=== PATIENT | female | born 1955 | race Hispanic/Latino ===

== ENCOUNTER 2019-06-20 22:38 | Emergency (ER) | payer MEDICARE ==
[2019-06-20 23:17] LABS: Bilirubin Negative (Negative); Blood, Urine Negative (Negative); Glucose, Urine (Dipstick) 500 mg/dL (Negative); Leukocyte Negative (Negative); Nitrite Negative (Negative); Protein, Urine (Dipstick) Trace mg/dL (Neg-Trace); Urobilinogen 0.2 mg/dL (Less than 2)
[2019-06-20 23:18] LABS: Clarity Clear (Clear)
[2019-06-20 23:35] LABS: #Eosinphils 0.1 thou/uL (0.0-0.7); #Lymphocytes 1.1 thou/uL (1.20-3.40); #Monocytes 0.4 thou/uL (0.11-0.59); #Neutrophils 5.1 thou/uL (1.40-6.50); %Basophils 0.7 % (0.0-1.0); %Eosinophils 0.9 % (0.0-10.0); %Lymphocytes 15.8 % (21.0-51.0); %Monocytes 6.4 % (0.0-10.0); %Neutrophils 76.3 % (42.0-75.0); Hemoglobin 12.5 g/dL (12.0-16.0); Mean Corpuscular HGB CONC 32.1 g/dL (32.0-36.0); Mean Corpuscular Hemoglobin 29.9 pg (27.0-31.0); Mean Corpuscular Volume 93.1 fL (78.0-98.0); Mean Platelet Volume 8.5 fL (7.4-10.4); Platelet Count 225 thou/uL (130-400); RBC Distribution Width 13.2 % (11.5-14.5); Red Blood Cell (RBC) Count 4.17 mill/uL (4.20-5.40); White Blood Cell (WBC) Count 6.7 thou/uL (4.8-10.8)
[2019-06-20 23:56] LABS: ALT (SGPT) 15 U/L (8-55); AST (SGOT) 13 U/L (5-34); Albumin 3.6 g/dL (3.4-4.8); Alkaline Phosphatase 123 U/L (40-110); Anion Gap 15 mmol/L (10-20); BUN (Urea Nitrogen) 10 mg/dL (9.8-20.1); Bilirubin, Total 0.3 mg/dL (0.2-1.2); Calc. Creatinine Clearance 0 mL/min (70-130); Calcium 8.3 mg/dL (7.8-10.44); Carbon Dioxide 17 mmol/L (23-31); Chloride 101 mmol/L (98-107); Estimated GFR-MDRD 69; Globulin 2.7 g/dL (2.4-3.5); Glucose 390 mg/dL (80-115); Lipase 6 U/L (8-78); Protein, Total 6.3 g/dL (6.0-8.3); Sodium 129 mmol/L (136-145)
[2019-06-21] MEDS ORDERED: Ketorolac Tromethamine 30 MG/ML VIAL ONE (00:08)
--- NOTE | 2019-06-21 07:20 | RAD ---
CHEST 1 VIEW: Date: 06/20/2019 HISTORY: Left lower quadrant pain. COMPARISON: None. FINDINGS: There are coronary artery stents. Single lead defibrillator tip projects over the right ventricle. Po rt-A-Cath tip at the mid SVC. Evidence of prior right mastectomy. Right upper quadrant surgical clips. IMPRESSION: No acute intrathoracic abnormality. POS: HOME
--- NOTE | 2019-06-21 08:08 | CT ---
PRELIMINARY REPORT/[facility]/EMERGENCY AFTER HOURS PROCEDURE EXAM: CT Abdomen and Pelvis Without Intravenous Contrast CLINICAL HISTORY: PT REPORTS LLQ PAIN AND VOMITING STARTED YESTERDAY, ALSO HAVING PAIN AT MASTECTOMY SITE (SURGERY WAS 6 WEEKS AGO.) PT ALSO REPORTS SOB. MASTECTOMY WOUND IS OPEN. TECHNIQUE: Axial computed tomography images of the abdomen and pelvis without intravenous contrast. CONTRAST: None. COMPARISON: None provided. FINDINGS: LUNG BASES: No basilar airspace consolidation or pleural effusion. LIVER: Unremarkable. GALLBLADDER AND BILE DUCTS: The gallbladder is surgically absent. PANCREAS: Unremarkable. SPLEEN: Unremarkable. ADRENAL GLANDS: Unremarkable. KIDNEYS, URETERS, AND BLADDER: Bilateral nonobstructing renal calculi. No ureteral or bladder calculi and no hydronephrosis. STOMACH AND BOWEL: Moderate volume of formed stool in the colon raising the possibility of some degree of constipation. APPENDIX: No CT evidence for appendicitis. PERITONEUM: No free fluid. No free air. REPRODUCTIVE: Unremarkable as visualized. VASCULATURE: Atherosclerosis. ABDOMINAL WALL AND SOFT TISSUES: Small focus of fat stranding with a few bubbles of gas in the subcutaneous fat of the anterior abdomi nal wall to the left inferolateral aspect of the umbilicus. Findings are most consistent with sequela of injection. Correlate clinically. BONES: No fracture or suspicious osseous abnormality. IMPRESSION: 1. Bilateral nonobstructing renal calculi. 2. Moderate volume of formed stool in the colon raising the possibility of some degree of constipatio n. 3. Small focus of fat stranding with a few bubbles of gas in the subcutaneous fat of the anterior abd ominal wall to the left inferolateral aspect of the umbilicus. Findings are most consistent with sequela of injection. Correlate clinically. ELECTRONICALLY SIGNED BY: Orion Amaya MD June 21, 2019 12:30:13 AM CDT This report is intended for review by the ordering physician only, in accordance of law. If you recei ve this report in error, please call [facility] at [phone]. FINAL REPORT Final report by Dr. Loving Emergency after-hours study CT ABDOMEN NONCONTRAST CT PELVIS NONCONTRAST: (Urolithiasis protocol) DATE: 06/21/2019 HISTORY: 63-year-old female with left lower quadrant abdominal pain, nausea, and vomiting COMPARISON: None TECHNIQUE: IV injection of iodinated contrast media: None Oral contrast media: None FINDINGS: Other than for urolithiasis, the lack of IV and oral contrast limits the evaluation. Agreement with preliminary report by [facility]. IMPRESSION: 1. Minimal bilateral nephrolithiasis: Tiny 2 mm calculi in each kidney, one on each side. 2. No obstructive uropathy or any other acute findings. Transcribed Date/Time: 06/21/2019 8:32 AM
== END 2019-06-21 01:35 | disposition home or self-care (01) ==
LOC: ERS 22:38
DX: R10.32 Left lower quadrant pain (principal); T81.31XA Disruption of external operation (surgical) wound, not elsewhere classified, initial encounter; R11.2 Nausea with vomiting, unspecified; E11.9 Type 2 diabetes mellitus without complications
CPT/HCPCS: 36415; 71045; 74176; 80053; 81003; 83605; 83690; 85025; 87040; 87077; 87086; 87186; 93005; 96372; 96374; J0500; J1885

== ENCOUNTER 2019-06-26 20:49 | Emergency (ER) | payer MEDICARE ==
[~2019-06-26 20:49] MED LIST: Iopamidol 370 76% 50 ML VIAL FS ONE; Iopamidol-370 76% 500 ML 1 ML ONE
[2019-06-26 21:25] LABS: Bilirubin Negative (Negative); Blood, Urine Negative (Negative); Clarity Clear (Clear); Glucose, Urine (Dipstick) Greater than 1000 mg/dL (Negative); Leukocyte Negative Leu/uL (Negative); Nitrite Negative (Negative); Protein, Urine (Dipstick) Negative (Neg-Trace); Urobilinogen Normal mg/dL (Less than 2)
[2019-06-26 21:51] LABS: #Monocytes 0.3 thou/uL (0.11-0.59); #Neutrophils 5.1 thou/uL (1.40-6.50); %Basophils 0.6 % (0.0-1.0); %Eosinophils 0.3 % (0.0-10.0); %Lymphocytes 14.9 % (21.0-51.0); %Monocytes 5.1 % (0.0-10.0); %Neutrophils 79.1 % (42.0-75.0); Hemoglobin 13.8 g/dL (12.0-16.0); Mean Corpuscular HGB CONC 31.8 g/dL (32.0-36.0); Mean Corpuscular Hemoglobin 29.5 pg (27.0-31.0); Mean Corpuscular Volume 92.5 fL (78.0-98.0); Mean Platelet Volume 8.7 fL (7.4-10.4); Platelet Count 249 thou/uL (130-400); RBC Distribution Width 13.2 % (11.5-14.5); White Blood Cell (WBC) Count 6.4 thou/uL (4.8-10.8)
[2019-06-26 22:11] LABS: ALT (SGPT) 18 U/L (8-55); AST (SGOT) 13 U/L (5-34); Albumin 3.8 g/dL (3.4-4.8); Alkaline Phosphatase 140 U/L (40-110); Anion Gap 17 mmol/L (10-20); BUN (Urea Nitrogen) 16 mg/dL (9.8-20.1); Bilirubin, Total 0.2 mg/dL (0.2-1.2); Calc. Creatinine Clearance 0 mL/min (70-130); Calcium 9.2 mg/dL (7.8-10.44); Carbon Dioxide 16 mmol/L (23-31); Chloride 98 mmol/L (98-107); Estimated GFR-MDRD 56; Globulin 2.8 g/dL (2.4-3.5); Glucose 458 mg/dL (80-115); Potassium 4.4 mmol/L (3.5-5.1); Protein, Total 6.6 g/dL (6.0-8.3); Sodium 127 mmol/L (136-145)
[2019-06-26] MEDS ORDERED: Morphine 4 MG/ML VIAL ONE (22:29)
[2019-06-26] MEDS ORDERED: Ondansetron PF 4 MG/2 ML Vial ONE (22:29)
[2019-06-26] MEDS ORDERED: Insulin Regular 300 UNITS/3 ML VIAL ONE (23:17)
--- NOTE | 2019-06-27 11:24 | CT ---
CT OF THE ABDOMEN AND PELVIS WITH IV CONTRAST: INDICATION: Left lower quadrant abdominal pain. COMPARISON: CT of the abdomen and pelvis without contrast dated 06/21/2019. FINDINGS: There is calcified granuloma in the left lower lobe. No focal hepatic lesion is evident. The gallbladder is surgically absent. The pancreas, adrenal glands, and spleen appear within normal limits. A few calcified granuloma are seen involving the spleen. There is stable bilateral nephrolithiasis. No hydronephrosis is evident. No focal renal lesion is evident. No free fluid or enlarged lymph nodes are evident within the abdomen. There are moderate calcifications involving the abdominopelvic vasculature. The visualized bladder, rectum, and perirectal soft tissues are unremarkable-appearing. There is scattered colonic diverticula. There is no evidence of active diverticulitis. There is a m oderate amount of retained stool within the colon. The appendix is reportedly surgically absent. No free fluid or enlarged lymph nodes are evident. No definite acute osseous abnormality is demonstrated. There is scattered degenerative and osteoarth ritic change. IMPRESSION: 1. Moderate amount of retained stool within the colon. 2. Bilateral nephrolithiasis. 3. Cholecystectomy. Appendectomy. Hysterectomy. POS: BH
--- NOTE | 2019-06-29 13:22 | EKG ---
Test Reason : Blood Pressure : / mmHG Vent. Rate : 120 BPM Atrial Rate : 120 BPM P-R Int : 132 ms QRS Dur : 084 ms QT Int : 304 ms P-R-T Axes : 059 005 148 degrees QTc Int : 429 ms Sinus tachycardia Possible Left atrial enlargement Anteroseptal infarct , age undetermined Abnormal ECG Confirmed by GOMEZ LAKHANI ([id number]), video effects editor ROMIE FLORENCE ([id number]) on 06/29/2019 1:22:40 PM Referred By: Confirmed By:GOMEZ LAKHANI
== END 2019-06-27 00:40 | disposition home or self-care (01) ==
LOC: ERS 20:49
DX: R10.32 Left lower quadrant pain (principal); E11.65 Type 2 diabetes mellitus with hyperglycemia; R11.2 Nausea with vomiting, unspecified; I50.9 Heart failure, unspecified; Z79.899 Other long term (current) drug therapy
CPT/HCPCS: 36415; 36416; 74177; 80053; 81003; 85025; 93005; 96361; 96374; 96375; J1815; J2270; J2405; Q9967

== ENCOUNTER 2019-11-25 18:13 | Emergency (ER) | payer MEDICARE ==
[2019-11-25 18:59] LABS: Bilirubin Negative (Negative); Blood, Urine Negative (Negative); Clarity Clear (Clear); Glucose, Urine (Dipstick) Greater than 1000 mg/dL (Negative); Ketone, Urine 40 mg/dL (Negative); Leukocyte Negative Leu/uL (Negative); Nitrite Negative (Negative); Protein, Urine (Dipstick) Negative (Neg-Trace); Specific Gravity, Urine 1.026 (1.002-1.036); Urobilinogen Normal mg/dL (Less than 2)
== END 2019-11-25 20:41 | disposition left against medical advice (07) ==
LOC: ERS 18:13
DX: Z53.21 Procedure and treatment not carried out due to patient leaving prior to being seen by health care provider (principal)
CPT/HCPCS: 81003